=== PATIENT | male | born 1955 | race Caucasian/White ===

== ENCOUNTER 2024-08-10 16:10 | Emergency (ER) | payer OTHER, MEDICAID ==
[~2024-08-10] VITALS: Ht 170.1 cm; Wt 101.6 kg
[2024-08-10] MEDS ORDERED: SODIUM CHLORIDE 0.9% 1,000 ML IV ONE (16:15)
[2024-08-10] MEDS ORDERED: OMEPRAZOLE40 MG PO (16:22)
[2024-08-10] MEDS ORDERED: LANTUS100 UNIT/1 SC (16:22)
[2024-08-10] MEDS ORDERED: NOVOLOG10 ML SC (16:22)
[2024-08-10] MEDS ORDERED: NORMODYNE,TRAN200 MG PO (16:23)
[2024-08-10] MEDS ORDERED: FINASTERIDE5 M1 PO (16:23)
[2024-08-10] MEDS ORDERED: HYDRALAZINE HYD50 MG PO (16:23)
[2024-08-10] MEDS ORDERED: GLIMEPIRIDE4 M1 PO (16:24)
[2024-08-10] MEDS ORDERED: ZYLOPRIM100 MG PO (16:24)
[2024-08-10] MEDS ORDERED: ALDACTONE50 M1 PO (16:24)
[2024-08-10] MEDS ORDERED: LIPITOR40 MG PO (16:24)
[2024-08-10] MEDS ORDERED: Synthroid,Levo50 MCG PO (16:25)
[2024-08-10] MEDS ORDERED: ALPHAGAN-P 0.2%5 ML OPH (16:25)
[2024-08-10] MEDS ORDERED: BUMETANIDE2 MG PO (16:25)
[2024-08-10] MEDS ORDERED: CALPHRON667 MG PO (16:26)
[2024-08-10] MEDS ORDERED: KERENDIA10 MG PO (16:26)
[2024-08-10] MEDS ORDERED: DORZOLAMIDE 2%10 ML OP (16:26)
[2024-08-10] MEDS ORDERED: MAGNESIUM400 M1 PO (16:27)
[2024-08-10] MEDS ORDERED: SODIUM BICARBONATE 650 MG (16:27)
[2024-08-10] MEDS ORDERED: FARXIGA5 M1 PO (16:27)
[2024-08-10] MEDS ORDERED: MOTRIN IB200 M2 PO (16:28)
[2024-08-10] MEDS ORDERED: FISH OIL 1,0001 EAC1 PO (16:28)
[2024-08-10] MEDS ORDERED: ASPIRIN81 M1 PO (16:28)
[2024-08-10] MEDS ORDERED: VITAMIN D325 MCG PO (16:28)
[2024-08-10 16:33] LABS: BASO % 0.4 % (0.0-1.0); EOS # 0.1 10*3/uL (0.0-0.4); EOS % 1.3 % (1.0-4.0); HEMATOCRIT 35.9 % (42.0-52.0); MEAN CELL VOLUME 91.8 fl (80.0-94.0); MEAN CORPUSCULAR HGB 27.9 pg (27.0-31.0); MEAN CORPUSCULAR HGB CONC 30.4 g/dl (33.0-37.0); MEAN PLATELET VOLUME 11.2 fl (9.6-12.3); MONO # 0.4 10*3/uL (0.1-1.0); MONO % 5.6 % (3.0-9.0); NEUT % 77.1 % (47.0-73.0); PLATELET COUNT AUTOMATED 221 10*3/uL (130-400); RED BLOOD COUNT 3.91 10*6/uL (4.50-5.90); WHITE BLOOD COUNT 7.8 10*3/uL (4.8-10.8)
[2024-08-10 16:53] LABS: POTASSIUM 4.3 mmol/L (3.4-5.1)
[2024-08-10] MEDS ORDERED: Glucagon Hydrochloride 1 MG SYR IV ONE (17:10)
== END 2024-08-10 17:34 | disposition admitted as inpatient to this hospital (09) ==
LOC: ED 16:10
PROVIDERS: Emergency Medicine
DX: R00.1 Bradycardia, unspecified (principal); E11.649 Type 2 diabetes mellitus with hypoglycemia without coma; I25.10 Atherosclerotic heart disease of native coronary artery without angina pectoris; I10 Essential (primary) hypertension; E78.5 Hyperlipidemia, unspecified; N17.9 Acute kidney failure, unspecified; Z95.1 Presence of aortocoronary bypass graft; Z88.7 Allergy status to serum and vaccine; Z88.8 Allergy status to other drugs, medicaments and biological substances; Z88.6 Allergy status to analgesic agent